=== PATIENT | female | born 1945 | race Asian ===

== ENCOUNTER 2019-04-13 18:47 | Emergency (ER) | payer MEDICARE, OTHER ==
--- NOTE | 2019-04-13 21:58 | ER Document Report ---
ED General - General Chief Complaint: Headache Stated Complaint: FALL/WEAKNESS Time Seen by Provider: 04/13/19 21:43 Notes: Patient is a 73-year-old female who presents to the emergency department after falling at the bank. Patient states that she was at the bank and trying to take money out of the bank, but they would not give her the money because she did not have her ID on her. She was brought in by a taxi. Patient states that she felt nervous and began crying because she could not get her money. No family is at bedside at this time. Patient has a history of triple bypass 5 years ago. Patient denies any symptoms, but according to EMS she was on the floor and she also complained of a headache and weakness. Patient states that she only felt the way she did because she wanted her money. Per EMS, the patient has dementia. TRAVEL OUTSIDE OF THE [place] IN LAST 30 DAYS: No - Related Data Allergies/Adverse Reactions: naproxen Allergy (Intermediate, Verified 04/13/19 20:07) Hives Home Medications: unrecallable. Past Medical History - Social History Smoking Status: Never Smoker Chew tobacco use (# tins/day): No Frequency of alcohol use: Rare Drug Abuse: None Family History: Reviewed & Not Pertinent Patient has suicidal ideation: No Patient has homicidal ideation: No - Past Medical History Cardiac Medical History: Reports: Hx Hypertension Past Surgical History: Reports: Hx Cardiac Surgery - 2 or 3v cabg Review of Systems - Review of Systems Notes: REVIEW OF SYSTEMS: CONSTITUTIONAL : Denies recent illness. Denies recent unintentional weight loss. Denies fever, chills, or sweats. EENT: Denies eye, ear, throat, or mouth pain, discharge, or symptoms. Denies nasal or sinus congestion. CARDIOVASCULAR: Denies chest pain. RESPIRATORY: Denies shortness of breath, cough, congestion, difficulty breathing, or wheezing. GASTROINTESTINAL: Denies nausea, vomiting, and diarrhea. Denies abdominal pain. Denies constipation. GENITOURINARY: Denies difficulty urinating, burning, blood in urine, urgency or frequency. MUSCULOSKELETAL: Denies neck and back pain. Denies joint pain or swelling. SKIN: Denies rash, itchiness, or lesions HEMATOLOGIC : Denies easy bruising or bleeding. LYMPHATIC: Denies swollen, painful, enlarged glands. NEUROLOGICAL: See HPI. PSYCHIATRIC: Denies stress, anxiety, alteration in sleep patterns, or depression. All other systems reviewed and negative. Physical Exam - Vital signs Vitals: Resp Pulse Ox 14 100 04/13/19 19:24 04/13/19 19:24 - Notes Notes: PHYSICAL EXAMINATION: GENERAL: Appears well, healthy, well-nourished, no acute distress. HEAD: Normocephalic, atraumatic. EYES: PERRL, conjunctiva normal, all extraocular movements intact, sclera nonicteric ENT: Moist mucous membranes. NECK: Supple, no noticeable swelling, redness, rash. Normal range of motion. LUNGS: Equal breath sounds bilaterally and clear to auscultation. No wheezes rales or rhonchi. CARDIOVASCULAR: S1-S2, regular rate, regular rhythm. Radial pulses 2+, normal. ABDOMEN: Normoactive bowel sounds. Soft, nontender, no guarding, no rebound tenderness, and no masses palpated. EXTREMITIES: Normal strength and range of motion, no pitting or edema. No cyanosis. NEUROLOGICAL: Moves all extremities upon command. Strength 5/5 in all extremities. PSYCH: Normal mood, normal affect. SKIN: Warm, dry. No rash, lesions, ulcerations noted. Normal skin turgor. Course - Re-evaluation Re-evalutation: 04/13/19 23:16 Hematology was unremarkable. Chemistries are also unremarkable and troponin is negative. I do not suspect patient has any psychological reason for needing to stay here in the emergency department. CT of the head shows chronic changes, consistent with her dementia that was reported from history via EMS. I made multiple phone calls to the daughter, who lives in [place]. Her phone number is [phone]. She gave me 2 phone numbers for the patient's son, Bari Collins. [phone] and [phone]. I called both numbers with no response. I then called Queta back again and got a phone number for a family friend named Mohini, [phone]. I called that phone number and was unable to reach anyone, left a message on Mohini's voicemail. 04/13/19 23:24 Patient became disoriented and continued to walk the halls. Patient was calmly talk to multiple times and she continued to yell at the staff and wave her arms in the air. Due to not being able to find family and the patient yelling at staff and myself, she will be given 2.5 mg of Haldol. 04/14/19 05:49 I spoke with Mohini, the patient's friend. She states that she will come get her and bring her home. Follow-up precautions were given. Verbal discharge instructions were given to the patient. They verbalized understanding. They are stable for discharge. 04/14/19 06:00 Mohini was at bedside. I updated her on the patient's status. I suspect patient had an episode of sundowning last night when she became confused and slightly combative. Patient states that she slept very well and she was appreciative for her care. I also instructed the patient to follow-up with her primary care provider. - Vital Signs Vital signs: Temp Pulse Resp BP Pulse Ox 98.1 F 76 18 165/74 H 100 04/14/19 06:00 04/14/19 06:00 04/14/19 06:00 04/14/19 06:00 04/14/19 06:00 - Laboratory Result Diagrams: 04/14/19 00:40 04/14/19 00:40 Laboratory results interpreted by me: 04/14/19 04/14/19 00:40 00:40 Lymph % (Auto) 11.9 L Chloride 108 H Glucose 130 H - EKG Interpretation by Me Additional EKG results interpreted by me: 04/13/19 Sinus bradycardia with a right bundle branch block. Rate 58. NM 172; QRS 138; QT 444; QTc 437. Discharge - Discharge Clinical Impression: Fall Qualifiers: Encounter type: initial encounter Qualified Code(s): W19.XXXA - Unspecified fall, initial encounter Headache Qualifiers: Headache type: unspecified Headache chronicity pattern: unspecified pattern Intractability: not intractable Qualified Code(s): R51 - Headache Condition: Stable Disposition: HOME, SELF-CARE Additional Instructions: You were seen today in the hospital for a fall. Your labs and your image studies are reassuring and normal . Please follow-up with your primary care provider in regards to this visit. If you have worsening symptoms, please return to the emergency department.
--- NOTE | 2019-04-13 23:05 | RADIOLOGY REPORT (SQ) ---
EXAM DESCRIPTION: CLINICAL HISTORY: 73 years Female, fall; weakness COMPARISON: None. FINDINGS: Sternotomy. Cardiomediastinal silhouette is not significantly enlarged. No obvious acute lung pleural bone abnormalities. IMPRESSION: No obvious acute findings.
--- NOTE | 2019-04-13 23:09 | RADIOLOGY REPORT (SQ) ---
EXAM DESCRIPTION: CT HEAD WITHOUT IV CONTRAST COMPLETED DATE/TME: 04/13/2019 21:58 CLINICAL HISTORY: 73 years, Female, headache; AMS COMPARISON: None. TECHNIQUE: 197 Images stored on PACS. All CT scanners at this facility use dose modulation, iterative reconstruction, and/or weight based dosing when appropriate to reduce radiation dose to as low as reasonably achievable (ALARA). [facility]: Dose Right [facility]: CareDose [facility]: Dose Right [facility]: Teradose 4D [facility]: [employer] LIMITATIONS: None. FINDINGS: The globes are intact. The paranasal sinuses and mastoid air cells are well aerated. There is no displaced or depressed skull fracture. There is no intra or extra-axial hemorrhage. CT is limited for evaluation of acute infarct. No CT evidence for large or territorial acute infarct. Age-appropriate atrophy. Minor small vessel ischemic change. No mass. No midline shift IMPRESSION: Age-appropriate atrophy and small vessel ischemic change TECHNICAL DOCUMENTATION: Quality ID # 436: Final reports with documentation of one or more dose reduction techniques (e.g., Automated exposure control, adjustment of the mA and/or kV according to patient size, use of iterative reconstruction technique) copyright 2011 [employer]- All Rights Reserved
[2019-04-13] MEDS ORDERED: HALOPERIDOL LACTATE INJ 5 MG/1 ML VIAL IM ONE ×2 (23:15→23:19)
[2019-04-13] MEDS ORDERED: HALOPERIDOL LACTATE INJ 5 MG/1 ML VIAL IV ONE (23:15)
--- NOTE | 2019-04-13 23:41 | EKG REPORT ---
SEVERITY:- ABNORMAL ECG - SINUS RHYTHM ATRIAL PREMATURE COMPLEX RIGHT BUNDLE BRANCH BLOCK OLD INFERIOR SD : Confirmed by: Ang Snider MD 13-Apr-2019 23:41:35
[2019-04-14 01:02] LABS: ABSOLUTE EOSINOPHILS # (AUTO) 0.2 10^3/uL (0.0-0.6); ABSOLUTE LYMPHOCYTES (AUTO) 0.7 10^3/uL (0.5-4.7); ABSOLUTE MONOCYTES (AUTO) 0.5 10^3/uL (0.1-1.4); ABSOLUTE NEUT (AUTO) 4.5 10^3/uL (1.7-8.2); BASOPHILS % (AUTO) 0.5 % (0-2); EOSINOPHILS % (AUTO) 2.8 % (0-6); HEMATOCRIT 42.4 % (36.0-47.0); HEMOGLOBIN 14.1 g/dL (12.0-15.5); LYMPHOCYTES % (AUTO) 11.9 % (13-45); MEAN CORPUSCULAR HGB CONC 33.2 g/dL (32.0-36.0); MEAN CORPUSCULAR VOLUME 90 fl (80-97); MONOCYTES % (AUTO) 7.8 % (3-13); PLATELET COUNT 227 10^3/uL (150-450); RED CELL DISTRIBUTION WIDTH 13.6 % (11.5-14.0); TOTAL CELLS COUNTED % (AUTO) 100 %; WHITE BLOOD COUNT 5.9 10^3/uL (4.0-10.5)
[2019-04-14 01:14] LABS: ALBUMIN 3.8 g/dL (3.5-5.0); ALKALINE PHOSPHATASE 89 U/L (38-126); ANION GAP 9 (5-19); ASPARTATE AMINO TRANSFERASE 32 U/L (14-36); BILIRUBIN,DIRECT 0.1 mg/dL (0.0-0.4); BILIRUBIN,TOTAL 0.5 mg/dL (0.2-1.3); BLOOD UREA NITROGEN 18 mg/dL (7-20); CALCIUM 9.3 mg/dL (8.4-10.2); CARBON DIOXIDE 24 mmol/L (22-30); CHLORIDE 108 mmol/L (98-107); CREATINE KINASE 120 U/L (30-135); GLUCOSE 130 mg/dL (75-110); POTASSIUM 3.7 mmol/L (3.6-5.0); TOTAL PROTEIN 6.6 g/dL (6.3-8.2)
[2019-04-14 06:45] VITALS: BP 165/74
== END 2019-04-14 06:15 | disposition home or self-care (01) ==
LOC: EDBD 18:47 → ER 18:47
DX: R51 Headache (principal); R53.1 Weakness; I10 Essential (primary) hypertension; W18.30XA Fall on same level, unspecified, initial encounter; Y92.510 Bank as the place of occurrence of the external cause; F03.90 Unspecified dementia, unspecified severity, without behavioral disturbance, psychotic disturbance, mood disturbance, and anxiety; Z95.1 Presence of aortocoronary bypass graft
CPT/HCPCS: 93005; 99285; 96372; 36415; 82550; 83735; 85025; 80053; 84484; 71045; 70450; 93010; J1630

== ENCOUNTER 2019-04-24 07:16 | Emergency (ER) | payer MEDICARE ==
[2019-04-24] MEDS ORDERED: NORMAL SALINE 1000 ML 1,000 ML IV ONE (08:24)
[2019-04-24 08:43] LABS: ABSOLUTE BASOPHILS # (AUTO) 0.1 10^3/uL (0.0-0.2); ABSOLUTE EOSINOPHILS # (AUTO) 0.2 10^3/uL (0.0-0.6); ABSOLUTE MONOCYTES (AUTO) 0.4 10^3/uL (0.1-1.4); ABSOLUTE NEUT (AUTO) 4.6 10^3/uL (1.7-8.2); EOSINOPHILS % (AUTO) 3.1 % (0-6); HEMATOCRIT 42.7 % (36.0-47.0); HEMOGLOBIN 14.5 g/dL (12.0-15.5); LYMPHOCYTES % (AUTO) 16.3 % (13-45); MEAN CORPUSCULAR HEMOGLOBIN 30.2 pg (27.0-33.4); MEAN CORPUSCULAR HGB CONC 33.9 g/dL (32.0-36.0); MEAN CORPUSCULAR VOLUME 89 fl (80-97); MONOCYTES % (AUTO) 6.2 % (3-13); PLATELET COUNT 247 10^3/uL (150-450); RED BLOOD COUNT 4.79 10^6/uL (3.72-5.28); RED CELL DISTRIBUTION WIDTH 13.2 % (11.5-14.0); SEGMENTED NEUTROPHILS % (AUTO) 73.4 % (42-78); TOTAL CELLS COUNTED % (AUTO) 100 %; WHITE BLOOD COUNT 6.2 10^3/uL (4.0-10.5)
[2019-04-24 08:48] LABS: ALBUMIN 3.9 g/dL (3.5-5.0); ALKALINE PHOSPHATASE 88 U/L (38-126); ANION GAP 9 (5-19); ASPARTATE AMINO TRANSFERASE 36 U/L (14-36); BILIRUBIN,DIRECT 0.2 mg/dL (0.0-0.4); BILIRUBIN,TOTAL 0.8 mg/dL (0.2-1.3); BLOOD UREA NITROGEN 17 mg/dL (7-20); CALCIUM 9.6 mg/dL (8.4-10.2); CARBON DIOXIDE 28 mmol/L (22-30); CHLORIDE 103 mmol/L (98-107); GLUCOSE 105 mg/dL (75-110); TOTAL PROTEIN 6.9 g/dL (6.3-8.2)
--- NOTE | 2019-04-24 08:49 | ER Document Report ---
ED General - General Chief Complaint: General Weakness Stated Complaint: WEAKNESS Time Seen by Provider: 04/24/19 08:13 Primary Care Provider: NATANAEL THOMPSON PA-C [Primary Care Provider] - Follow up in 3-5 days TRAVEL OUTSIDE OF THE [place] IN LAST 30 DAYS: No - HPI Notes: 73-year-old female to the emergency department with complaints of generalized weakness, body aches, cough, chills that began 3 days ago and has gotten worse. She states that she awoke this morning shivering. She denies any chase fevers. She denies any chest pain, nausea, vomiting, abdominal pain. She does state that she has little bit of shortness of breath. She states that she lives by herself and her recently about 3 months ago. She states she has not been doing very well since then. She does admit to urinary frequency. She denies any pain with urination. - Related Data Allergies/Adverse Reactions: naproxen Allergy (Intermediate, Verified 04/24/19 07:26) Hives Past Medical History - General Information source: Patient - Social History Smoking Status: Never Smoker Chew tobacco use (# tins/day): No Frequency of alcohol use: None Drug Abuse: None Lives with: Family Family History: Reviewed & Not Pertinent Patient has suicidal ideation: No Patient has homicidal ideation: No - Past Medical History Cardiac Medical History: Reports: Hx Hypertension Past Surgical History: Reports: Hx Cardiac Surgery - 2 or 3v cabg Review of Systems - Review of Systems Constitutional: Chills, Weakness. denies: Fever EENT: Nose congestion. denies: Ear pain, Nose discharge, Sinus pressure, Sinus discharge Cardiovascular: denies: Chest pain, Palpitations, Syncope, Dizziness, Lig htheaded Respiratory: Cough, Short of breath Gastrointestinal: denies: Abdominal pain, Diarrhea, Nausea, Vomiting Genitourinary: Frequency. denies: Burning, Dysuria, Discharge, Flank pain, Hematuria Female Genitourinary: No symptoms reported Musculoskeletal: Other - body aches Skin: No symptoms reported Hematologic/Lymphatic: No symptoms reported Neurological/Psychological: No symptoms reported -: Yes All other systems reviewed and negative Physical Exam - Vital signs Vitals: Temp Pulse Resp BP Pulse Ox 97.3 F 65 16 147/80 H 100 04/24/19 07:26 04/24/19 07:26 04/24/19 07:26 04/24/19 07:26 04/24/19 07:26 Interpretation: Normal - General General appearance: Appears well, Alert In distress: None - HEENT Head: Normocephalic, Atraumatic Eyes: Normal Pupils: PERRL Ears: Normal External canal: Normal Tympanic membrane: Normal Sinus: Normal Nasal: Normal Mouth/Lips: Normal Pharynx: Normal. No: Potential airway comprom. Neck: Normal, Supple. No: Lymphadenopathy, Meningismus - Respiratory Respiratory status: No respiratory distress Chest status: Nontender Breath sounds: Nonproductive cough. No: Decreased air movement, Rales, Rhonchi, Stridor, Wheezing Chest palpation: Normal - Cardiovascular Rhythm: Regular Heart sounds: Normal auscultation Murmur: No - Abdominal Inspection: Normal Distension: No distension Bowel sounds: Normal Tenderness: Nontender. No: Tender, McBurney's point, Sinha's sign, Guarding, Rebound Organomegaly: No organomegaly - Back Back: Normal, Nontender - Neurological Neuro grossly intact: Yes Cognition: Normal Orientation: AAOx4 Ong Coma Scale Eye Opening: Spontaneous Ong Coma Scale Verbal: Oriented Hugh Coma Scale Motor: Obeys Commands Hugh Coma Scale Total: 15 Speech: Normal Cranial nerves: Normal Cerebellar coordination: Normal Motor strength normal: LUE, RUE, LLE, RLE Additional motor exam normals: Equal fast food supervisor. No: Pronator drift Sensory: Normal - Psychological Associated symptoms: Normal affect, Normal mood - Skin Skin Temperature: Warm Skin Moisture: Dry Skin Color: Normal Course - Re-evaluation Re-evalutation: 04/24/19 medical staff services coordinator attempted to ambulate patient. She uses a walker at home, but apparently had to be helped to a bedside commode, because she has some difficulty ambulating. I went and spoke with patient further. She states that she has actually been having weakness for one month and difficulty ambulating like she has today for one month. She has PT and OT in her home that has been ongoing for several weeks as a result of this. She states that they will come this week. She also reports that she does live with one of her children - a son. But she does not like living with him because he smokes and drinks because of his PTSD. She states that she would prefer not to live with him. She also states she has a friend who is basically her caregiver. Suspect that much of the patient's weakness today is actually her baseline. She does admit to some dementia and she is forgetful here in the ER today. She is able to get herself dressed and can transfer herself to a chair. From the patient, it sounds like she has quite a few resources at home. Her labs, EKG, head CT, UA all are very reassuring. Will plan on discharging home. - Vital Signs Vital signs: Temp Pulse Resp BP Pulse Ox 97.3 F 65 15 153/74 H 100 04/24/19 07:26 04/24/19 07:26 04/24/19 12:01 04/24/19 12:01 04/24/19 12:01 - Laboratory Result Diagrams: 04/24/19 07:52 04/24/19 07:52 - Diagnostic Test Radiology reviewed: Image reviewed, Reports reviewed - EKG Interpretation by Me EKG shows normal: Sinus rhythm Rate: Normal Rhythm: NSR [place]/QRS: RBBB Additional EKG results interpreted by me: 04/24/19 NO STEMI, + RBBB which is unchanged from prior. No significant change from prior on 04/13/19. Discharge - Discharge Clinical Impression: Generalized weakness, Cough, Viral syndrome, Hypertension Condition: Stable Disposition: HOME, SELF-CARE Instructions: Acetaminophen, Viral Syndrome ([facility]) Additional Instructions: FOLLOW UP WITH YOUR PRIMARY CARE PHYSICIAN IN THE NEXT 3 DAYS. RETURN IF SYMPTOMS WORSENING -- SUCH CHEST PAIN, PASSING OUT, OR ANY OTHER CONCERNING SYMPTOMS. PUSH FLUIDS. Prescriptions: Acetaminophen [Tylenol 325 mg Tablet] 650 mg PO Q4HP PRN #60 tablet PRN Reason: Referrals: NATANAEL THOMPSON PA-C [Primary Care Provider] - Follow up in 3-5 days
[2019-04-24 09:13] LABS: APPEARANCE,URINE CLEAR; BILIRUBIN,URINE NEGATIVE (NEGATIVE); COLOR,URINE STRAW; GLUCOSE, URINE NEGATIVE (NEGATIVE); KETONES,URINE NEGATIVE (NEGATIVE); LEUKOCYTE ESTERASE,URINE NEGATIVE (NEGATIVE); NITRITE,URINE NEGATIVE (NEGATIVE); PROTEIN,URINE NEGATIVE (NEGATIVE); URINE SPECIFIC GRAVITY 1.005; UROBILINOGEN,URINE NEGATIVE mg/dL (<2.0)
--- NOTE | 2019-04-24 09:19 | RADIOLOGY REPORT (SQ) ---
EXAM DESCRIPTION: CHEST 2 VIEWS COMPLETED DATE/TIME: 04/24/2019 9:10 am REASON FOR STUDY: chest congestion, weakness COMPARISON: 04/13/2019 EXAM PARAMETERS: NUMBER OF VIEWS: two views TECHNIQUE: Digital Frontal and Lateral radiographic views of the chest acquired. RADIATION DOSE: NA LIMITATIONS: none FINDINGS: LUNGS AND PLEURA: No opacities, masses or pneumothorax. No pleural effusion. MEDIASTINUM AND HILAR STRUCTURES: No masses or contour abnormalities. HEART AND VASCULAR STRUCTURES: Heart normal size. No evidence for failure. BONES: Scoliosis. Sternal wires. HARDWARE: None in the chest. OTHER: No other significant finding. IMPRESSION: NO ACUTE RADIOGRAPHIC FINDING IN THE CHEST. TECHNICAL DOCUMENTATION: JOB ID: [id number] [employer]- All Rights Reserved Reading location - IP/workstation name: [email or web address]
[2019-04-24 09:40] LABS: A TYPE INFLUENZA AG NEGATIVE (NEGATIVE); B INFLUENZA AG NEGATIVE (NEGATIVE)
[2019-04-24] MEDS ORDERED: ACETAMINOPHEN 325 MG TABLET PO ONE (09:43)
--- NOTE | 2019-04-24 12:06 | RADIOLOGY REPORT (SQ) ---
EXAM DESCRIPTION: CT HEAD WITHOUT COMPLETED DATE/TIME: 04/24/2019 11:40 am REASON FOR STUDY: weakness COMPARISON: 04/13/2019 TECHNIQUE: Axial images acquired through the brain without intravenous contrast. Images reviewed wi th bone, brain and subdural windows. Additional sagittal and coronal reconstructions were generated. Images stored on PACS. All CT scanners at this facility use dose modulation, iterative reconstruction, and/or weight based d osing when appropriate to reduce radiation dose to as low as reasonably achievable (ALARA). [facility]: Dose Right [facility]: CareDose [facility]: Dose Right [facility]: Teradose 4D [facility]: [employer] RADIATION DOSE: CT Rad equipment meets quality standard of care and radiation dose reduction techniq ues were employed. CTDIvol: 53.2 mGy. DLP: 937 mGy-cm.mGy. LIMITATIONS: None. FINDINGS: VENTRICLES: Prominent. CEREBRUM: No masses. No hemorrhage. No midline shift. Areas of low density in the white matter mos t likely due to chronic micro-vascular ischemic change. No evidence for acute infarction. CEREBELLUM: No masses. No hemorrhage. No alteration of density. No evidence for acute infarction. EXTRAAXIAL SPACES: Age-related involutional change. No fluid collections. No masses. ORBITS AND GLOBE: No intra- or extraconal masses. Normal contour of globe without masses. CALVARIUM: No fracture. PARANASAL SINUSES: No fluid or mucosal thickening. SOFT TISSUES: No mass or hematoma. OTHER: No other significant finding. IMPRESSION: CHRONIC CHANGES OF ATROPHY AND MICROVASCULAR ISCHEMIA. NO ACUTE PROCESS. EVIDENCE OF ACUTE STROKE: NO. TECHNICAL DOCUMENTATION: JOB ID: [id number] Quality ID # 436: Final reports with documentation of one or more dose reduction techniques (e.g., Au tomated exposure control, adjustment of the mA and/or kV according to patient size, use of iterative reconstruction technique) 2010 [employer]- All Rights Reserved Reading location - IP/workstation name: [email or web address]
[2019-04-24 13:15] VITALS: BP 167/73
--- NOTE | 2019-04-24 17:12 | EKG REPORT ---
SEVERITY:- ABNORMAL ECG - SINUS RHYTHM RIGHT BUNDLE BRANCH BLOCK CANNOT R/O INFERIOR MA : Confirmed by: Sonido Rivera 24-Apr-2019 17:12:05
== END 2019-04-24 13:15 | disposition home or self-care (01) ==
LOC: ER 07:16
DX: R53.1 Weakness (principal); B34.9 Viral infection, unspecified; R26.2 Difficulty in walking, not elsewhere classified; R05 Cough; R68.83 Chills (without fever); R06.02 Shortness of breath; R35.0 Frequency of micturition; R09.81 Nasal congestion; R52 Pain, unspecified; I45.10 Unspecified right bundle-branch block; F03.90 Unspecified dementia, unspecified severity, without behavioral disturbance, psychotic disturbance, mood disturbance, and anxiety; I10 Essential (primary) hypertension; Z63.4 Disappearance and death of family member; Z95.1 Presence of aortocoronary bypass graft; Z88.8 Allergy status to other drugs, medicaments and biological substances
CPT/HCPCS: 93005; 99283; 96360; 36415; 83735; 85025; 80053; 81001; 84484; 87804; 71046; 70450; 93010; A9270; J7030

== ENCOUNTER 2020-02-27 10:55 | Emergency (ER) | payer MEDICARE, OTHER ==
--- NOTE | 2020-02-27 11:30 | ER Document Report ---
ED Medical Screen (RME) - General Chief Complaint: Chest Pain Stated Complaint: CHEST PAIN Time Seen by Provider: 02/27/20 11:27 Primary Care Provider: COSME PRITCHARD PA-C [Primary Care Provider] - Follow up as needed Information source: Patient Notes: Patient presents reporting chest pain that started this morning with some shortness of breath. Patient reports that she has a cough although is uncertain how long the cough has been for. Patient very anxious and tearful worried about losing her ID card in her insurance card. Patient requesting all questions be directed to her son Jesus who is not here. Patient's son Jesus contact information is not accessible via the computer. Patient hysterical and refuses to answer questions in triage. I have greeted and performed a rapid initial assessment of this patient. A comprehensive ED assessment and evaluation of the patient, analysis of test results and completion of the medical decision making process will be conducted by additional ED providers. TRAVEL OUTSIDE OF THE [place] IN LAST 30 DAYS: No - Related Data Allergies/Adverse Reactions: naproxen Allergy (Intermediate, Verified 04/24/19 07:26) Hives Past Medical History - Past Medical History Cardiac Medical History: Reports: Hx Hypertension Past Surgical History: Reports: Hx Cardiac Surgery - 2 or 3v cabg Physical Exam - General General appearance: Alert, Anxious - Respiratory Respiratory status: Tachypnea Breath sounds: Nonproductive cough Doctor's Discharge - Discharge Referrals: COSME PRITCHARD PA-C [Primary Care Provider] - Follow up as needed
[2020-02-27 12:50] LABS: ABSOLUTE BASOPHILS # (AUTO) 0.1 10^3/uL (0.0-0.2); ABSOLUTE EOSINOPHILS # (AUTO) 0.2 10^3/uL (0.0-0.6); ABSOLUTE MONOCYTES (AUTO) 0.3 10^3/uL (0.1-1.4); ABSOLUTE NEUT (AUTO) 2.2 10^3/uL (1.7-8.2); BASOPHILS % (AUTO) 1.4 % (0-2); EOSINOPHILS % (AUTO) 6.2 % (0-6); HEMATOCRIT 44.4 % (36.0-47.0); HEMOGLOBIN 15.1 g/dL (12.0-15.5); LYMPHOCYTES % (AUTO) 27.1 % (13-45); MEAN CORPUSCULAR HEMOGLOBIN 30.4 pg (27.0-33.4); MEAN CORPUSCULAR VOLUME 89 fl (80-97); MONOCYTES % (AUTO) 6.7 % (3-13); PLATELET COUNT 258 10^3/uL (150-450); RED BLOOD COUNT 4.97 10^6/uL (3.72-5.28); RED CELL DISTRIBUTION WIDTH 13.4 % (11.5-14.0); SEGMENTED NEUTROPHILS % (AUTO) 58.6 % (42-78); TOTAL CELLS COUNTED % (AUTO) 100 %; WHITE BLOOD COUNT 3.8 10^3/uL (4.0-10.5)
[2020-02-27 13:10] LABS: ALBUMIN 4.1 g/dL (3.5-5.0); ALKALINE PHOSPHATASE 118 U/L (38-126); ANION GAP 9 (5-19); ASPARTATE AMINO TRANSFERASE 52 U/L (14-36); BILIRUBIN,DIRECT 0.2 mg/dL (0.0-0.4); BILIRUBIN,TOTAL 0.8 mg/dL (0.2-1.3); BLOOD UREA NITROGEN 15 mg/dL (7-20); CALCIUM 9.6 mg/dL (8.4-10.2); CARBON DIOXIDE 26 mmol/L (22-30); CHLORIDE 105 mmol/L (98-107); GLUCOSE 102 mg/dL (75-110); POTASSIUM 4.2 mmol/L (3.6-5.0); TOTAL PROTEIN 6.7 g/dL (6.3-8.2)
[2020-02-27 13:21] LABS: NT PRO BNP 608 pg/mL (<450)
[2020-02-27 13:24] LABS: TROPONIN I < 0.012 ng/mL
[2020-02-27 13:37] LABS: APPEARANCE,URINE CLEAR; BILIRUBIN,URINE NEGATIVE (NEGATIVE); COLOR,URINE YELLOW; GLUCOSE, URINE NEGATIVE (NEGATIVE); KETONES,URINE NEGATIVE (NEGATIVE); LEUKOCYTE ESTERASE,URINE NEGATIVE (NEGATIVE); NITRITE,URINE NEGATIVE (NEGATIVE); PROTEIN,URINE NEGATIVE (NEGATIVE); URINE SPECIFIC GRAVITY 1.011; UROBILINOGEN,URINE NEGATIVE mg/dL (<2.0)
--- NOTE | 2020-02-27 13:44 | RADIOLOGY REPORT (SQ) ---
EXAM DESCRIPTION: CHEST SINGLE VIEW IMAGES COMPLETED DATE/TIME: 02/27/2020 1:36 pm REASON FOR STUDY: cp, cough COMPARISON: 04/24/2019 EXAM PARAMETERS: NUMBER OF VIEWS: One view. TECHNIQUE: Single frontal radiographic view of the chest acquired. RADIATION DOSE: NA LIMITATIONS: None. FINDINGS: LUNGS AND PLEURA: No opacities, masses or pneumothorax. No pleural effusion. MEDIASTINUM AND HILAR STRUCTURES: No masses. Contour normal. HEART AND VASCULAR STRUCTURES: Mild cardiac enlargement. No failure. BONES: No acute findings. HARDWARE: Sternotomy wires are in place. OTHER: No other significant finding. IMPRESSION: Mild cardiac enlargement. No failure or consolidation. TECHNICAL DOCUMENTATION: JOB ID: [id number] [employer]- All Rights Reserved Reading location - IP/workstation name: [email or web address]
[2020-02-27] MEDS ORDERED: CEPHALEXIN 500 MG CAPSULE PO ONE (14:58)
--- NOTE | 2020-02-27 16:01 | ER Document Report ---
ED General - General Chief Complaint: Chest Pain Stated Complaint: CHEST PAIN Time Seen by Provider: 02/27/20 11:27 Primary Care Provider: COSME PRITCHARD PA-C [Primary Care Provider] - Follow up as needed TRAVEL OUTSIDE OF THE [place] IN LAST 30 DAYS: No - HPI Notes: Chief complaint: Chest discomfort History of present illness: This is a 74-year-old female from [facility] who was brought to this area within the last 12 months by her son who was also previously living with her in [place]. The son has difficulty caring for himself due to all traumatic brain injury. Mrs. Collins has mild dementia and also is not really able to care for herself. She has been staying with a lady who has been receiving payment from the 2 of them to provide them assisted and provide basic support for them in her living situation. The son apparently has had a decompensation of his mental health status and has required recent inpatient admission to behavioral service. The patient complained of some mid anterior chest pain last night. The "acquaintance" with whom she has been living apparently dropped her off at the hospital. Patient says she really did not want to come to the hospital. She was seen at triage and because of her age and pre-existing history of CAD she was placed in a room here for evaluation by physician. Patient was tearful describing her overall living situation with which she is very unhappy. She indicates that she had central chest pain last night but none today. She says the area is sore when she touches this and is located directly over her CABG scar. She has no other new complaints at this time. I spoke with her other son in [place], [place] Collins: [phone] who basically corroborates the story and provide some supplemental history. He would very much like to see his mother placed in some type of a custodial or other assisted living facility. Patient denies any suicidal/homicidal ideation. She denies auditory or visual hallucinations. She denies any history of abuse of drugs or alcohol. - Related Data Allergies/Adverse Reactions: naproxen Allergy (Intermediate, Verified 04/24/19 07:26) Hives Past Medical History - General Information source: Patient Cannot obtain history due to: Dementia - Social History Smoking Status: Unknown if Ever Smoked Frequency of alcohol use: None Drug Abuse: None Lives with: Family Family History: Reviewed & Not Pertinent - Past Medical History Cardiac Medical History: Reports: Hx Coronary Artery Disease, Hx Hypertension Endocrine Medical History: Denies: Hx Diabetes Mellitus Type 1, Hx Diabetes Mellitus Type 2 Past Surgical History: Reports: Hx Cardiac Surgery - 2 or 3v cabg Review of Systems - Review of Systems Notes: Constitutional: Negative for fever. HENT: Negative for sore throat. Eyes: Negative for visual changes. Cardiovascular: Negative for chest pain. Respiratory: Negative for shortness of breath. Gastrointestinal: Negative for abdominal pain, vomiting or diarrhea. Genitourinary: Negative for dysuria. Musculoskeletal: As per HPI. Skin: Negative for rash. Neurological: Negative for headaches, weakness or numbness. 10 point ROS negative except as marked above and in HPI. Physical Exam - Vital signs Vitals: Temp Pulse Resp BP Pulse Ox 97.6 F 57 L 18 150/64 H 100 02/27/20 11:35 02/27/20 11:35 02/27/20 11:35 02/27/20 11:35 02/27/20 11:35 - Notes Notes: GENERAL: Frail elderly female who is very anxious and slightly tearful. SKIN: Good turgor no rashes. HEAD: Normocephalic atraumatic. EYES: PERRLA. EOMI. Conjunctivae and sclerae clear. EARS: CANALS AND TMS CLEAR. NOSE: CLEAR. MOUTH: Moist mucosa. Good dentition. No stridor or edema. No drooling. NECK: Supple. No masses or thyromegaly. No adenopathy. Carotids 2+ without bruits. No JVD. BACK: Symmetrical without tenderness. CHEST: Reproducible midline anterior chest tenderness. Respirations unlabored. Breath sounds clear and symmetrical. HEART: Healed midline CABG scar present. Regular rhythm. No murmur gallop or rub. ABDOMEN: Soft nontender without masses, organomegaly or rebound. Bowel sounds normally active. No bruits. GENITALIA: Deferred. EXTREMITIES: No edema. No calf tenderness. Cap refill less than 1.5 seconds. Dorsalis pedis and posterior tibial pulses 3+ and symmetrical. NEUROLOGICAL: GCS 15. Alert and oriented x3. Normal gait. Fluent speech. Cranial nerves II through XII intact. Sensorimotor and cerebellar normal. Normal tone. PSYCHIATRIC: Anxious affect. Course - Re-evaluation Re-evalutation: 02/27/20 16:05 EKG shows pre-existing right bundle branch block with overall appearance of the tracing being unchanged from a prior baseline study. Troponin is normal. Chest x-ray shows postsurgical changes and otherwise normal. Her pain is clearly reproducible with palpation of the chest wall. Her CBC and chemistry profile are unremarkable. Her urinalysis shows some microscopic hematuria and a few white cells. She may well have a low-grade urinary tract infection but clearly is not septic and does not clinically have pyelonephritis. I have given her 1 dose of Keflex here and I think she should be treated for 7 to 10 days with continued oral antibiotics which I will prescribe her. I talked with her son in [place] about her social situation. We have agreed that we will keep her in ED at this time as a social hold and ask our discharge planning team to try to coordinate some long-term placement for this patient. - Vital Signs Vital signs: Temp Pulse Resp BP Pulse Ox 97.6 F 57 L 18 150/64 H 100 02/27/20 11:35 02/27/20 11:35 02/27/20 11:35 02/27/20 11:35 02/27/20 13:30 - Laboratory Result Diagrams: 02/27/20 12:29 02/27/20 12:29 Laboratory results interpreted by me: 02/27/20 02/27/20 02/27/20 12:29 12:29 12:29 WBC 3.8 L Eos % (Auto) 6.2 H AST 52 H ALT 63 H NT-Pro-B Natriuret Pep 608 H Urine Blood 02/27/20 13:22 WBC Eos % (Auto) AST ALT NT-Pro-B Natriuret Pep Urine Blood MODERATE H Discharge - Discharge Clinical Impression: Chest wall pain, Urinary tract infection Condition: Stable Disposition: OTHER Prescriptions: Cephalexin Monohydrate [Keflex 500 mg Capsule] 500 mg PO Q6H 10 Days #40 capsule Referrals: COSME PRITCHARD PA-C [Primary Care Provider] - Follow up as needed
--- NOTE | 2020-02-27 17:20 | EKG REPORT ---
SEVERITY:- ABNORMAL ECG - SINUS RHYTHM RIGHT BUNDLE BRANCH BLOCK BORDERLINE ST DEPRESSION, LATERAL LEADS : Confirmed by: Ang Snider MD 27-Feb-2020 17:19:43
--- NOTE | 2020-02-28 11:29 | ER Document Report ---
Doctor's Note Notes: 02/28/20 11:28 Patient seen and examined this morning. She is resting comfortably in the bed and very talkative. She is currently talking on the phone. She is stating that she needs her morning medications. I did review all of the medications with the nurse and have ordered the patient's daily meds. She is currently awaiting placement by social work. I did discuss the case with social work and they are currently in process of trying to obtain placement. Otherwise, patient has no significant complaints.
[2020-02-28] MEDS ORDERED: CARVEDILOL 6.25 MG TABLET PO SCH (11:30)
[2020-02-28] MEDS ORDERED: ATORVASTATIN CALCIUM 40 MG TABLET PO SCH (11:30)
[2020-02-28] MEDS ORDERED: APIXABAN 5 MG TABLET PO SCH (11:30)
[2020-02-28] MEDS ORDERED: LOSARTAN POTASSIUM 25 MG TABLET PO SCH (11:30)
[2020-02-28] MEDS: CEPHALEXIN 500 MG CAPSULE PO SCH ×2 (12:36→16:51)
--- NOTE | 2020-02-28 16:10 | ER Document Report ---
Doctor's Note Notes: 02/28/20 16:09 Elderly lady with dementia remains on social hold. Family has expressed interest in placing patient in a alf. Discharge planning team is working on this. Patient remains mildly confused consistent with her baseline but has no active complaints at this time.
[2020-02-28 17:47] VITALS: BP 125/68
[2020-02-28] MEDS ORDERED: MIRTAZAPINE 15 MG TABLET PO SCH (22:00)
[2020-02-28] MEDS ORDERED: ESCITALOPRAM OXALATE 10 MG TABLET PO SCH (22:00)
== END 2020-02-28 17:49 | disposition other institution (70) ==
LOC: ER 10:55
DX: R07.89 Other chest pain (principal); N39.0 Urinary tract infection, site not specified
CPT/HCPCS: 93005; 36415; 83735; 85025; 80053; 81001; 84484; 83880; 71045; 93010; A9270 ×6; 99285

== ENCOUNTER → 2020-03-02 | Outpatient (CLI) | payer MEDICARE, OTHER ==
--- NOTE | 2020-03-02 15:10 | RADIOLOGY REPORT (SQ) ---
EXAM DESCRIPTION: CT HEAD WITHOUT IMAGES COMPLETED DATE/TIME: 03/02/2020 2:59 pm REASON FOR STUDY: F03.90 UNSPECIFIED DEMENTIA WITHOUT BEHAVIORAL DISTURBANCE F03.90 UNSPECIFIED DEM ENTIA WITHOUT BEHAVIORAL DISTURBANCE COMPARISON: 04/24/2019 TECHNIQUE: Axial images acquired through the brain without intravenous contrast. Images reviewed wi th bone, brain and subdural windows. Additional sagittal and coronal reconstructions were generated. Images stored on PACS. All CT scanners at this facility use dose modulation, iterative reconstruction, and/or weight based d osing when appropriate to reduce radiation dose to as low as reasonably achievable (ALARA). [facility]: Dose Right [facility]: CareDose [facility]: Dose Right [facility]: Teradose 4D [facility]: SprayCool RADIATION DOSE: CT Rad equipment meets quality standard of care and radiation dose reduction techniq ues were employed. CTDIvol: 48.9 mGy. DLP: 935 mGy-cm.mGy. LIMITATIONS: None. FINDINGS: VENTRICLES: Prominent. CEREBRUM: No masses. No hemorrhage. No midline shift. Areas of low density in the white matter mos t likely due to chronic micro-vascular ischemic change. No evidence for acute infarction. CEREBELLUM: No masses. No hemorrhage. No alteration of density. No evidence for acute infarction. EXTRAAXIAL SPACES: Age-related involutional change. No fluid collections. No masses. ORBITS AND GLOBE: No intra- or extraconal masses. Normal contour of globe without masses. CALVARIUM: No fracture. PARANASAL SINUSES: No fluid or mucosal thickening. SOFT TISSUES: No mass or hematoma. OTHER: No other significant finding. IMPRESSION: CHRONIC CHANGES OF ATROPHY AND MICROVASCULAR ISCHEMIA. NO ACUTE PROCESS. EVIDENCE OF ACUTE STROKE: NO. TECHNICAL DOCUMENTATION: JOB ID: [id number] Quality ID # [id number]: Final reports with documentation of one or more dose reduction techniques (e.g., Au tomated exposure control, adjustment of the mA and/or kV according to patient size, use of iterative reconstruction technique) 2010 [employer]- All Rights Reserved Reading location - IP/workstation name: [email or web address]
== END ==
LOC: RAD 13:58
PROVIDERS: ATTEND Physician Assistant
DX: F03.90 Unspecified dementia, unspecified severity, without behavioral disturbance, psychotic disturbance, mood disturbance, and anxiety (principal)
CPT/HCPCS: 70450